=== PATIENT | male | born 1980 | race American Indian/Alaskan Native ===

== ENCOUNTER 2018-04-08 23:29 | Emergency (ER) | payer SELFPAY ==
[2018-04-09 01:49] VITALS: BP 131/87
[2018-04-09] MEDS ORDERED: NORCO 7.5/325 PO ONE (02:42)
--- NOTE | 2018-04-09 03:01 | XRay Report ---
FINAL REPORT EXAM: XR HUMERUS 2+V LT HISTORY: left humerus pain COMPARISON: Left shoulder from the same date. FINDINGS: Two views of the left humerus obtained. There is an oblique spiral type fracture of the proximal humeral diaphysis. Moderate callus formation. Slight anterior angulation at the fracture site. Joint spaces are grossly preserved. IMPRESSION: Subacute spiral type fracture of the proximal humeral diaphysis. Callus formation is present. Slight anterior angulation the fracture site.
--- NOTE | 2018-04-09 03:01 | XRay Report ---
FINAL REPORT EXAM: XR SHOULDER 2+V LT HISTORY: left shoulder pain COMPARISON: None available. FINDINGS: AC joint and glenohumeral joint space preserved. There is an oblique nondisplaced fracture of the proximal humeral diaphysis with callus formation. Fracture is subacute. IMPRESSION: Subacute oblique spiral type fracture of the proximal humeral diaphysis.
--- NOTE | 2018-04-09 03:26 | Emergency Department Report ---
ED Upper Extremity Inj HPI - General Chief Complaint: Extremity Injury, Upper Stated Complaint: LEFT ARM INJURY Time Seen by Provider: 04/09/18 02:36 Source: patient Mode of arrival: Ambulatory Limitations: No Limitations - History of Present Illness Initial Comments: 37-year-old -[place] male reports that he tripped and fell while playing with his kids. Patient reports now he is having left shoulder and left upper arm pain. Patient does report he has a history of left arm injury and feels that he may have reinjured it. Patient does report he never followed up for his fracture actually humorous with an orthopedic provider. A complete reports his pain is a 10 out of 10. He reports no medical history has a surgical history of hernia repair. He currently has no known drug allergies take no medications on a daily basis. MD Complaint: Injury to:: left, arm -: During the night Handedness: right Place: home Severity scale (0 -10): 10 Improves With: immobilization Worsens With: movement of extremity Associated Symptoms: denies other symptoms Treatments Prior to Arrival: other (none) - Related Data Previous Rx's Medication Instructions Recorded Last Taken Type HYDROcodone/APAP 5-325 [Umbarger 1 each PO Q6HR PRN #8 tablet 04/09/18 Unknown Rx 5/325] Ibuprofen [Motrin 600 MG tab] 600 mg PO Q8H PRN #20 tablet 04/09/18 Unknown Rx Allergies Allergy/AdvReac Type Severity Reaction Status Date / Time No Known Allergies Allergy Unverified 04/09/18 01:48 ED Review of Systems ROS: Stated complaint: LEFT ARM INJURY Other details as noted in HPI Constitutional: denies: chills, fever Eyes: denies: eye pain, eye discharge, vision change ENT: denies: ear pain, throat pain Respiratory: denies: cough, shortness of breath, wheezing Cardiovascular: denies: chest pain, palpitations Endocrine: no symptoms reported Gastrointestinal: denies: abdominal pain, nausea, diarrhea Genitourinary: denies: urgency, dysuria Musculoskeletal: arthralgia (left arm) Skin: denies: rash, lesions Neurological: denies: headache, weakness, paresthesias Psychiatric: denies: anxiety, depression Hematological/Lymphatic: denies: easy bleeding, easy bruising ED Past Medical Hx - Past Medical History Previous Medical History?: No - Surgical History Additional Surgical History: Hernia repair. Fractured Humerus - Social History Smoking Status: Never Smoker Substance Use Type: None - Medications Home Medications: Home Medications Medication Instructions Recorded Confirmed Last Taken Type HYDROcodone/APAP 5-325 [Umbarger 1 each PO Q6HR PRN #8 tablet 04/09/18 Unknown Rx 5/325] Ibuprofen [Motrin 600 MG tab] 600 mg PO Q8H PRN #20 tablet 04/09/18 Unknown Rx ED Physical Exam - General Limitations: No Limitations ED Course Vital Signs 04/09/18 00:34 Temperature 98.3 F Pulse Rate 96 H Respiratory 18 Rate Blood Pressure 131/87 O2 Sat by Pulse 98 Oximetry ED Medical Decision Making - Radiology Data Radiology results: report reviewed Ordering Physician: MATEO BAUER MD Date of Service: 04/09/18 Procedure(s): XR humerus 2+V LT Accession Number(s): [id number] cc: MATEO BAUER MD Fluoro Time In Minutes: FINAL REPORT EXAM: XR HUMERUS 2+V LT HISTORY: left humerus pain COMPARISON: Left shoulder from the same date. FINDINGS: Two views of the left humerus obtained. There is an oblique spiral type fracture of the proximal humeral diaphysis. Moderate callus formation. Slight anterior angulation at the fracture site. Joint spaces are grossly preserved. IMPRESSION: Subacute spiral type fracture of the proximal humeral diaphysis. Callus formation is present. Slight anterior angulation the fracture site. Transcribed By: LMA Dictated By: PORTILLO OLIVEIRA MD Electronically Authenticated By: PORTILLO OLIVEIRA MD Signed Date/Time: 04/09/18299 DD/ 9 TD/TT: 04/09/18299 - Medical Decision Making Patient has been evaluated by this provider fast track. Umbarger 7.5 mg given for pain management X-ray of left shoulder and left humerus ordered which shows subacute spiral fracture of the humerus Discussed the patient will place him in a sugar tong splint in a sling and for patient to follow up with orthopedist in the next 3-5 days. Discharge patient on ibuprofen and Umbarger. Critical care attestation.: If time is entered above; I have spent that time in minutes in the direct care of this critically ill patient, excluding procedure time. ED Disposition Clinical Impression: Injury of left shoulder and upper arm Qualifiers: Encounter type: initial encounter Qualified Code(s): S49.92XA - Unspecified injury of left shoulder and upper arm, initial encounter Fracture of left upper extremity with delayed healing Qualifiers: Fracture type: closed Qualified Code(s): S42.302G - Unspecified fracture of shaft of humerus, left arm, subsequent encounter for fracture with delayed healing Disposition: - TO HOME OR SELFCARE Is pt being admited?: No Does the pt Need Aspirin: No Condition: Stable Additional Instructions: Please wear splint and sling to left arm. It is very very important for you to follow up with orthopedist for evaluation. Pain medication as needed. Prescriptions: HYDROcodone/APAP 5-325 [Umbarger 5/325] 1 each PO Q6HR PRN #8 tablet PRN Reason: Pain Ibuprofen [Motrin 600 MG tab] 600 mg PO Q8H PRN #20 tablet PRN Reason: Pain Referrals: PRIMARY CARE, [Primary Care Provider] - 3-5 Days MIKEY HAND MD [Staff Physician] - 3-5 Days Forms: Work/School Release Form(ED)
== END 2018-04-09 04:20 | disposition home or self-care (01) ==
LOC: ED 23:29
DX: S42.302G Unspecified fracture of shaft of humerus, left arm, subsequent encounter for fracture with delayed healing (principal); W01.0XXD Fall on same level from slipping, tripping and stumbling without subsequent striking against object, subsequent encounter; Y93.89 Activity, other specified; Y92.099 Unspecified place in other non-institutional residence as the place of occurrence of the external cause; Y99.8 Other external cause status
CPT/HCPCS: 99283